=== PATIENT | male | born 2000 | race Caucasian/White ===

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

== ENCOUNTER 2019-04-07 12:40 | Inpatient (IN) ==
--- OUTSIDE RECORDS SUMMARY | 2019-04-07 12:42 | External Medical Summary | Continuity of Care Document ---
:2000 Author Name Ben Walden, Provider Address Unavailable Unavailable , Care Team Providers Name Role Phone Unavailable Unavailable Unavailable Bhargav HOWARD, Sigrid Unavailable [email or web address] Lucas Walden, Sarah Khan Unavailable [email or web address] HAYES Walden, S Unavailable Unavailable Unavailable Unavailable Unavailable Problems Asthma, mild (493.90) (J45.909) Shortness of breath (786.05) (R06.02) Pleurisy (511.0) (R09.1) Nausea (787.02) (R11.0) Abdominal pain, unspecified abdominal location (789.00) (R10 .9) BMI 26.0-26.9,adult (V85.22) (Z68.26) Back pain (724.5) (M54.9) Ankle sprain (845.00) (S93.409A) Depression with anxiety (300.4) (F41.8) Deviated nasal septum (470) (J34.2) Allergies and Adverse Reactions Penicillins (Allergy) Reaction: Hives Medications Bentyl 10 MG CAPS; TAKE 1 CAPSULE EVERY 6 HOURS NEEDED. Iram Start: 15-Nov-2017 Refills: 0 MiraLax Oral Powder; MIX 1 CAPFUL (17GM) IN 8 OUNCES OF WATER, JUICE, OR TEA AND DRINK DAILYIram Almanza Start: 15-Nov-2017 Refills: 0 Ondansetron 8 MG Oral Tablet Disintegrat ing; dissolve 1 tablet ON TONGUE every 6 to 8 hours for nausea LEE Durant Start: 15-Apr-2018 Quantity: 30 Refills: 4 FLUoxetine HCl - 20 MG Oral Capsule; TAKE 1 CAPSULE BY MOUTH DAILY Iram Zavala Start: 15-Apr-2018 Quantity: 30 Refills: 6 Procedures Procedures not documented Immunizations Hepatitis B On: 2000 IPV On: 1998 HIB On: 1998 DTaP On: 1998 IPV On: 1998 HIB On: 1998 DTaP On: 1998 DTaP On: 1998 Hepatitis B On: 14-Feb-1999 Varicella On: 16-May-1999 MMR On: 16-May-1999 Hepatitis B On: 15-Jun-1999 IPV On: 10-Aug-1999 HIB On: 10-Aug-1999 DTaP On: 10-Aug-1999 Pneumo (Prevnar) On: 14-Nov-1999 Pneumo (Prevnar) On: 24-Jan-2000 IPV On: 28-Apr-2003 DTaP On: 28-Apr-2003 MMR On: 28-Apr-2003 Varicella On: 09-Apr-2007 Tdap (Adacel) On: 06-Dec-2010 11:23 Lot #: [id number], [employer] Meningo (Menactra) On: 06-Dec-2010 11:22 Lot #: [id number], [employer] Menactra Intramuscular Injectable On: 15-Dec-2015 15:23 Lot #: [id number], [employer] Vaqta 25 UNIT/0.5ML Intramuscular Suspension On: 09-Apr-2017 14:28 Lot #: [id number], [employer] Trumenba Intramuscular Suspension Prefilled Syringe On: 14:29 Lot #: [id number], PFIZER [place]. Gardasil 9 Intramuscular Suspension On: 09-Apr-2017 14:29 Lot #: [id number], [employer] Family History Unknown Family Member Family history of Diabetes Mellitus (V18.0) Status: Active Comments: Family History Family history of Heart Disease (V17.49) Status: Active Comments: Family History Family history of Hypertension (V17.49) Status: Active Comments: Family History Family history of Hirschsprung's disease Status: Active Comments: Family History (751.3) (Q43.1) Mother Family history of hyperthyroidism (V18.19) (Z83.49) Status: Active uncle Family history of irritable bowel syndrome (V18.59) (Z83.79) Status: Active Social History - Smoking Status Never smoker Plan of Treatment Planned Observations Planned Goals not documented Results No Known Results Results not documented Encounters Appointment; Ken Marino M.D. 12-Feb-2018 13:30 Encounter Diagnosis: Problem not documented Appointment; Ken Marino M.D. 24-Dec-2017 15:00 Encounter Diagnosis: Problem not documented Appointment; Pulmonary, Funct Testing 21-Nov-2017 10:00 Encounter Diagnosis: Problem not documented Appointment; Ken Marino M.D. 15-Nov-2017 14:00 Encounter Diagnosis: Problem not documented Appointment; Roseline Flores M.D. 17-Oct-2017 9:00 Encounter Diagnosis: Problem not documented Appointment; Ped , Nursing Station 11-Oct-2017 15:45 Encounter Diagnosis: Problem not documented Appointment; Sigrid Durant PA-C 11-Sep-2017 11:10 Encounter Diagnosis: Problem not documented Appointment; Liilan Awan M.D. 29-Jun-2017 12:30 Encounter Diagnosis: Problem not documented Appointment; Ped , Nursing Station 20-Jun-2017 10:00 Encounter Diagnosis: Problem not documented Appointment; Hazel Man PA-C 14-Jun-2017 15:30 Encounter Diagnosis: Problem not documented Appointment; Sarah Zavala M.D. 20-Apr-2017 15:30 Encounter Diagnosis: Problem not documented Appointment; Radha Webb PA-C 09-Apr-2017 14:00 Encounter Diagnosis: Problem not documented
[2019-04-07 13:15] LABS: Appearance Urine Clear (Clear); Bilirubin Urine Negative (Negative); Blood Urine Negative (Negative); Color Urine Yellow; Glucose Urine UA Negative (Negative); Ketones Urine Negative (Negative); Leukocyte Esterase Urine Negative (Negative); Nitrite Urine Negative (Negative); Protein Urine Negative (Negative); Specific Gravity Urine 1.019 (1.000-1.030); Urobilinogen Urine Negative (Negative); pH Urine 6.5 (4.5-7.5)
--- NOTE | 2019-04-07 13:22 | Emergency Department Note ---
Entered by Rashid Alvarado acting as a scribe for Ajit Greenfield DO History of Present Illness General Chief complaint: Mental Health Evaluation Stated complaint: SUICIDAL THOUGHTS Source: patient History of Present Illness Onset (ago): hour(s) (earlier this morning ) Location: head Pain Consistency: + other (episode) Maximum Pain Intensity: 0 Quality: + other (suicidal ideation ) Associated symptoms: + other (+depressed) The patient is a 18 year old male, with no significant past medical history, who presents to the Emergency Room with complaints of an episode of suicidal ideation earlier this morning. The patient states he has been depressed for "quite a while". The patient states there has been a lot going on in his life, and he states that it seems like it is all hitting him at once. The patient states that this morning, he felt his worst and wanted to kill himself. The patient states he does not see a therapist or counselor, and he denies being on medication for anxiety or depression. The patient states he has never tried to hurt himself in the past, but he notes he has had thoughts of hurting himself a few times a week over the past 6 months. The patient states school as been good at [employer]. 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 The patient states he has not been in a relationship since July. The patient also notes he does not use drugs and alcohol anymore. Home Medications Home Medications Medication Instructions Recorded Confirmed Type ibuprofen 800 mg PO Q8H PRN 09/05/18 04/07/19 History albuterol sulfate [Ventolin HFA] 0 puff INHALATION UD PRN 04/07/19 04/07/19 History Allergies Allergy/AdvReac Type Severity Reaction Status Date / Time clavulanic acid Allergy Severe HIVES AND Verified 09/05/18 19:57 VOMITING Penicillins Allergy Severe HIVES AND Verified 09/05/18 19:57 VOMITING amoxicillin Allergy Intermediate HIVES Verified 09/05/18 19:57 doxycycline AdvReac Severe Vomiting Verified 09/05/18 19:57 lactose AdvReac Gastrointestinal Verified 09/05/18 19:57 Upset BETALACTAMASEIN Allergy Severe HIVES AND Uncoded 09/05/18 19:57 VOMITING Past Med/Surg History Medical History No significant past medical history Closed head injury (Resolved) Abdominal lymphadenopathy Family history non-contributory No significant past medical history Surgical History No significant past surgical history Family History Other Family history non-contributory Social History Preferred Language: Singaporean current occupational status: student Feels Safe at Home: Yes Smoking Status: Former smoker Review of Systems See HPI for pertinent positives & negatives. and A total of 10 systems reviewed and were otherwise negative Physical Exam Vital Signs Vital Signs - 24 hr 04/07/19 12:47 Temperature 36.8 C Temperature Source Oral Sepsis Recent Fever Within 48 Hours No Sepsis New/Unexplained Change in Mental Status No Sepsis Action Taken by Nursing No Action Required Pulse Rate 81 Respiratory Rate 18 Respiratory Effort / Characteristics Non-Labored Respiratory Depth Normal Blood Pressure 149/89 H Blood Pressure Mean 109 Blood Pressure Position Sitting Pulse Oximetry 100 Oxygen Delivery Method Room Air GENERAL: Patient is awake alert in no acute distress patient is resting comfortably and showing no signs of anxiety EYES: The conjunctivae are clear. The pupils are round and reactive. EARS, NOSE, MOUTH AND THROAT: The nose is without any evidence of any deformity. Mucous membranes are moist tongue is midline NECK: The neck is nontender and supple. RESPIRATORY: Normal respiratory effort is noted there is no evidence of wheezing rhonchi or rales CARDIOVASCULAR: Regular rate and rhythm noted there no murmurs rubs or gallops normal S1 normal S2 GASTROINTESTINAL: The abdomen is soft. Bowel sounds are present in all quadrants. Abdomen is nontender MUSCULOSKELETAL/EXTREMITIES: There is no evidence of gross deformity full range of motion is noted in the hips and shoulders SKIN: There is no obvious evidence of any rash. There are no petechiae, pallor or cyanosis noted. NEUROLOGIC: Patient is awake alert and oriented x3 strength is symmetric patellar reflexes are 2+ bilaterally PSYCH: The patient is awake and alert. He makes good eye contact. Affect is flat. Currently the patient is denying any suicidal homicidal ideation. Course 1257: Past medical records reviewed. The patient was evaluated in room A6. A complete history and physical exam was performed. 1758: The patient will be transferred to [facility] for further evaluation. Medical Decision Making Differential Diagnosis Differential diagnosis: Etiologies such as mood disorder, infection, hypoglycemia, electrolyte abnormalities, cardiac sources, intracerebral event, toxicologic, neurologic, as well as others were entertained. Medical Records Attestation: I reviewed the patient's medical records. Home Medications Current Medication List: was personally reviewed by me Laboratory Data Attestation: I reviewed the patient's lab results. Result diagrams: 04/07/19 13:26 04/07/19 13:26 Lab Results 04/07/19 04/07/19 04/07/19 Range/Units 12:55 12:55 13:26 WBC 8.45 (4.8-10.8) K/uL RBC 5.24 (4.7-6.1) M/uL Hgb 15.2 (14.0-18.0) g/dL Hct 46.1 (42-52) % MCV 88.0 (80-100) fL MCH 29.0 (25-34) pg MCHC 33.0 (32-36) g/dL RDW Std Deviation 41.1 (36.4-46.3) fL RDW Coeff of Jimmy 12.9 (11.5-14.5) % Plt Count 262 (130-400) K/uL MPV 11.2 H (7.4-10.4) fL Immature Gran % (Auto) 0.1 % Neut % (Auto) 70.0 % Lymph % (Auto) 23.0 % [place] % (Auto) 5.9 % Eos % (Auto) 0.6 % Baso % (Auto) 0.4 % Immature Gran # (Auto) 0.01 (0.00-0.02) K/uL Neut # (Auto) 5.92 (1.4-6.5) K/uL Lymph # (Auto) 1.94 (1.2-3.4) K/uL [place] # (Auto) 0.50 (0.11-0.59) K/uL Eos # (Auto) 0.05 (0-0.5) K/uL Baso # (Auto) 0.03 (0-0.2) K/uL Sodium (136-145) mmol/L Potassium (3.5-5.1) mmol/L Chloride (98-107) mmol/L Carbon Dioxide (21-32) mmol/L Anion Gap (3-11) BUN (7-18) mg/dl Creatinine (0.6-1.4) mg/dl Est Cr Clr Drug Dosing ml/min Est GFR ( Amer) Est GFR (Non-Af Amer) BUN/Creatinine Ratio (10-20) Glucose (70-99) mg/dl Calcium (8.5-10.1) mg/dl Total Bilirubin (0.2-1) mg/dl AST (15-37) U/L ALT (12-78) U/L Alkaline Phosphatase (45-117) U/L Total Protein (6.4-8.2) gm/dl Albumin (3.4-5.0) gm/dl Globulin (2.5-4.0) gm/dl Albumin/Globulin Ratio (0.9-2) TSH (0.300-4.500) uIu/ml Urine Color Yellow Urine Appearance Clear (Clear) Urine pH 6.5 (4.5-7.5) Ur Specific [place] 1.019 (1.000-1.030) Urine Protein Negative (Negative) Urine Glucose (UA) Negative (Negative) Urine Ketones Negative (Negative) Urine Blood Negative (Negative) Urine Nitrite Negative (Negative) Urine Bilirubin Negative (Negative) Urine Urobilinogen Negative (Negative) Ur Leukocyte Esterase Negative (Negative) Salicylates (2.8-20) mg/dl Urine Opiates Screen Neg (Neg) Ur Methadone, Qual Neg (Neg) Acetaminophen (10-30) ug/ml Urine Barbiturates Neg (Neg) Ur Phencyclidine (PCP) Neg (Neg) U Amphetamin/Meth Scrn Neg (Neg) MDMA (Ecstasy) Screen Neg (Neg) U Benzodiazepines Scrn Neg (Neg) Ur Cocaine Metabolite Neg (Neg) U Marijuana (THC) Screen Neg (Neg) Ethyl Alcohol mg/dL (0-3) mg/dl 04/07/19 04/07/19 04/07/19 Range/Units 13:26 13:26 13:26 WBC (4.8-10.8) K/uL RBC (4.7-6.1) M/uL Hgb (14.0-18.0) g/dL Hct (42-52) % MCV (80-100) fL MCH (25-34) pg MCHC (32-36) g/dL RDW Std Deviation (36.4-46.3) fL RDW Coeff of Jimmy (11.5-14.5) % Plt Count (130-400) K/uL MPV (7.4-10.4) fL Immature Gran % (Auto) % Neut % (Auto) % Lymph % (Auto) % [place] % (Auto) % Eos % (Auto) % Baso % (Auto) % Immature Gran # (Auto) (0.00-0.02) K/uL Neut # (Auto) (1.4-6.5) K/uL Lymph # (Auto) (1.2-3.4) K/uL [place] # (Auto) (0.11-0.59) K/uL Eos # (Auto) (0-0.5) K/uL Baso # (Auto) (0-0.2) K/uL Sodium 138 (136-145) mmol/L Potassium 3.7 (3.5-5.1) mmol/L Chloride 107 (98-107) mmol/L Carbon Dioxide 26 (21-32) mmol/L Anion Gap 6.0 (3-11) BUN 19 H (7-18) mg/dl Creatinine 1.01 (0.6-1.4) mg/dl Est Cr Clr Drug Dosing 118.8 ml/min Est GFR ( Amer) 123.5 Est GFR (Non-Af Amer) 106.6 BUN/Creatinine Ratio 18.3 (10-20) Glucose 87 (70-99) mg/dl Calcium 9.2 (8.5-10.1) mg/dl Total Bilirubin 0.4 (0.2-1) mg/dl AST 19 (15-37) U/L ALT 20 (12-78) U/L Alkaline Phosphatase 110 (45-117) U/L Total Protein 8.1 (6.4-8.2) gm/dl Albumin 4.0 (3.4-5.0) gm/dl Globulin 4.1 H (2.5-4.0) gm/dl Albumin/Globulin Ratio 1.0 (0.9-2) TSH 1.370 (0.300-4.500) uIu/ml Urine Color Urine Appearance (Clear) Urine pH (4.5-7.5) Ur Specific [place] (1.000-1.030) Urine Protein (Negative) Urine Glucose (UA) (Negative) Urine Ketones (Negative) Urine Blood (Negative) Urine Nitrite (Negative) Urine Bilirubin (Negative) Urine Urobilinogen (Negative) Ur Leukocyte Esterase (Negative) Salicylates < 1.7 L (2.8-20) mg/dl Urine Opiates Screen (Neg) Ur Methadone, Qual (Neg) Acetaminophen < 2 L (10-30) ug/ml Urine Barbiturates (Neg) Ur Phencyclidine (PCP) (Neg) U Amphetamin/Meth Scrn (Neg) MDMA (Ecstasy) Screen (Neg) U Benzodiazepines Scrn (Neg) Ur Cocaine Metabolite (Neg) U Marijuana (THC) Screen (Neg) Ethyl Alcohol mg/dL < 3.0 (0-3) mg/dl Blood Pressure Blood Pressure Findings: Elevated blood pressure Blood Pressure Disposition: Referred to patients primary care provider MDM Narrative The patient is a 18-year-old male who presented to the emergency department for an evaluation of mental health problems. The patient had significant depression symptoms. The patient presented to the emergency department because he was unsu re if he was safe. Initially he was very vague with his complaints and did not have any specific suicidal plan. Once he was medically cleared he was evaluated by the mental health case making machine operator. He was then found to have very significant depression symptoms and was felt to be at high risk. The patient was agreeable to inpatient management. He was referred to [facility] and was accepted for further i npatient management. Impression & Plan Depression, Suicidal ideation Discharge Plan Visit Data Chief Complaint: Mental Health Evaluation Stated Complaint: SUICIDAL THOUGHTS ED Provider: Ajit Greenfield Discharge Problem: Depression, Suicidal ideation Patient Disposition: Transfer Behavioral Health Fac Forms Stand Alone Forms: [facility] Prescriptions Prescriptions: No Action ibuprofen 800 mg tablet 800 mg PO Q8H PRN (Reason: Pain) RF: 0 albuterol sulfate [Ventolin HFA] 90 mcg/actuation HFA aerosol inhaler inhalation UD PRN (Reason: Shortness Of Breath Or Wheezing) RF: 0 Referrals Referrals: Igor Jose [Primary Care Provider] - Discharge Problem: Depression Qualifiers: Depression Type: unspecified Qualified Code(s): F32.9 - Major depressive disor pancho, single episode, unspecified The scribe's documentation has been prepared under my direction and personally reviewed by me in its entirety. I confirm that the note above accurately refl ects all work, treatment, procedures, and medical decision making performed by me.
[2019-04-07 13:44] LABS: Amphetamines+Metham, Urine Neg (Neg); Barbiturates, Urine Neg (Neg); Benzodiazepine, Urine Neg (Neg); Cocaine, Urine Neg (Neg); MDMA (Ecstacy), Urine Neg (Neg); Methadone, Urine Neg (Neg); Opiate, Urine Neg (Neg); Phencyclidine, Urine Neg (Neg)
[2019-04-07 13:55] LABS: Basophils # (auto) 0.03 K/uL (0-0.2); Basophils % (auto) 0.4 %; Eosinophils # (auto) 0.05 K/uL (0-0.5); Eosinophils % (auto) 0.6 %; Hematocrit (blood only) 46.1 % (42-52); Hemoglobin 15.2 g/dL (14.0-18.0); Immature Granulocytes # (auto) 0.01 K/uL (0.00-0.02); Immature Granulocytes % (auto) 0.1 %; Lymphocytes # (auto) 1.94 K/uL (1.2-3.4); Mean Platelet Volume 11.2 fL (7.4-10.4); Monocytes % (auto) 5.9 %; Neutrophils # (auto) 5.92 K/uL (1.4-6.5); Platelet Count 262 K/uL (130-400); RDW Coefficient of Variation 12.9 % (11.5-14.5); RDW Standard Deviation 41.1 fL (36.4-46.3); Red Blood Count 5.24 M/uL (4.7-6.1); White Blood Count 8.45 K/uL (4.8-10.8)
[2019-04-07 14:16] LABS: BUN Creatinine Ratio 18.3 (10-20); Calcium 9.2 mg/dl (8.5-10.1); Creatinine Clr Calc Pharmacy 118.8 ml/min; Est GFR (African American) 123.5; Est GFR (Non-African American) 106.6; Potassium 3.7 mmol/L (3.5-5.1)
[2019-04-07 14:17] LABS: Acetaminophen < 2 ug/ml (10-30); Salicylate < 1.7 mg/dl (2.8-20)
[2019-04-07 14:26] LABS: Bilirubin,Total 0.4 mg/dl (0.2-1); Globulin 4.1 gm/dl (2.5-4.0); Thyroid Stimulating Hormone 1.37 uIu/ml (0.300-4.500); Total Protein 8.1 gm/dl (6.4-8.2)
[2019-04-07] MEDS ORDERED: IBUPROFEN 800 MG TAB PO PRN (17:14)
[2019-04-07] MEDS ORDERED: ALBUTEROL HFA 8 GM INHALER INH PRN (17:14)
[2019-04-07] MEDS ORDERED: ALUMINUM/MAGNESIUM SUSP 30 ML UDC PO PRN (17:15)
[2019-04-07] MEDS ORDERED: MAGNESIUM HYDROXIDE SUSP 30 ML UDC PO PRN (17:15)
[2019-04-07] MEDS ORDERED: SODIUM CHLORIDE 0.65% NA SOLN 45 ML (OCEAN) PRN (17:15)
[2019-04-07] MEDS ORDERED: ACETAMINOPHEN 325 MG TAB PO PRN (17:15)
[2019-04-07] MEDS ORDERED: BISMUTH SUBSALICYLATE PER ML OMNICELL CHARGE PO PRN (17:15)
--- NOTE | 2019-04-08 10:24 | History & Physical ---
Date of Service April 08, 2019 Impression / Recommendations Impression 18 y/o SWM with depression who presents with suicidal thought after a break up, and has been struggling with low mood for months, never had formal treatment before, and would like therapy, but is not interested in medications. Has multiple psychosocial stressors, difficult family situation, limited supports. Unwilling for family meeting at this time, but will continue to encourage. Is feeling better in 12 hours here and hoping for rapid discharge. For now, inpatient treatment is indicated due to risk of suicide if discharged prematurely. (1) Suicidal ideation: 04/08 - Continue suicide checks, participation in unit groups and therapy. - Safety plan to include plan to secure guns. He states they are locked in a safe and he doesn't have the rowley. Also states the family he lives with doesn't know he's been struggling with depression or that he's in the hospital. - Family meeting indicated if patient willing. Present on Admission?: Yes (2) Depression: 04/08 - Reviewed diagnosis and treatment recommendations, including medication and therapy. He is unwilling for medication at this time, but is willing for therapy. Reviewed his fears of medication, and provided psychoeducation regarding antidepressants, what they do and do not do, common side effects, and encouraged him to consider if mood dose not improve with therapy alone. -Discussed behavioral strategies to improve mood, including attention to good sleep, exercise, nutrition. Encourage patient to consider being more open with his supports regarding his struggles. Depression Type: major depressive disorder Major depression recurrence: single episode Active/Remission status: currently active Major depression episode severity: severe Psychotic features: without psychotic features Qualified Code(s): F32.2 - Major depressive disorder, single episode, severe without psychotic features Present on Admission?: Yes (3) Gluten intolerance: 04/08 -patient reports a history of gluten intolerance, unclear if he has had a GI workup or formal medical diagnosis. We will request records from his PCP, Dr. Jose, at [facility]. -Patient reports specific dietary requirements, but does not know what they are; cardiopulmonary supervisor consulted for assistance. Gluten free diet for now. Present on Admission?: Yes Inventory Assets Strengths: Willing for treatment, has housing Needs: Treatment of depression, and outpatient treatment Risk Factors Assessment Male: Yes : Yes Do You Have Access To A Gun?: Yes Health Problems: Yes Mental Health Diagnoses: Yes Substance Use Disorders: No Previous Attempt: No Family History of Suicide: No Previous Psychiatric Hospitalization: No Hopelessness: Yes Smoker: No Protective Factors Assessment : No Responsible for Young Children: No Employed: No Stable Relationships: No Supportive Family: No Good Rapport with Provider: No Psychiatric History Identifying Data BENJIE VALLE is a 18-year-old M who currently lives in [place] with a friend and their family, has a history of depression that has never been treated, and was admitted on 04/07/19 17:15 on a 201 voluntary commitment for depression and suicidal ideation. Chief Complaint "GOt really down, the lowest I've ever been, sudha scary honestly". History of Present Illness Patient presented to the ER 04/07/2019 reporting suicidal thoughts and a desire to , with a plan to crash his car while driving. He stated depression had been worsening for "quite a while," and that he felt overwhelmed and unable to cope. He has never received any treatment, although reports depression has been ongoing for years. Exacerbated by his girlfriend breaking up with him, strained relationships with his family and roommates, financial problems, lack of support, and unemployment. His blood pressure was elevated 149/89 in the ER, but has since normalized. Laboratory studies were normal, and TSH was in the normal range. On my assessment today, he endorses depressed mood, frequent crying spells, helplessness, hopelessness, low self-esteem and negative thoughts about himself, guilt, inability to function on a daily basis, low motivation, and decreased appetite (gained weight intentionally, works out). Sleep is impaired, which he attributes to not having his own room (shares w/ friend) and sleeping on a camping cot (his bed was disposed of due to bed bugs). Gets 6-7 hours/night. He has been isolating at home more, not going out with friends. Has lost his friend group after an argument with two friends last year. He notes mood has progressively worsened over the past 2-3 months, and states this the worst he has ever felt. Yesterday mood worsened acutely after a girl he had gone on some dates with told him she didn't want to continue seeing him, and "that pushed me over the edge." He reports multiple other stressors as well, including strained family relationships, noting he moved out of his mother's home at age 13 to live with family friends (still living with the same family). Only talks to his mom a couple times a month, and sees father once a month. Also stressed about finances (not working and no income, quit last job and has applied for others but not gotten one yet) and school (needs to get an home maker for the summer and then a job, but doesn't know exactly what he wants to do when he's done with school). He says he should "probably" attempt to address them while here, as recognizing they're negatively impacting his mood. He is doing well in school, "I do decent, but could try harder in a few classes." Denies significant anxiety, panic, OCD, h/o octavia, psychosis, or anger outbursts/aggression. Notes he hasn't talked about his depression with friends or family, and doesn't know if he wants to involve them. Past Psychiatric History Previous Psych History: Talked to his guidance counselor in . Outpatient Services: None Previous Psych Admissions: None Do You Have Access To A Gun?: Yes History of Previous Suicide Attempt: No Past Medication Trials: fluoxetine - prescribed by PCP, doesn't know how it affected him Allergies Allergy/AdvReac Type Severity Reaction Status Date / Time clavulanic acid Allergy Severe HIVES AND Verified 09/05/18 19:57 VOMITING Penicillins Allergy Severe HIVES AND Verified 09/05/18 19:57 VOMITING amoxicillin Allergy Intermediate HIVES Verified 09/05/18 19:57 doxycycline AdvReac Severe Vomiting Verified 09/05/18 19:57 lactose AdvReac Gastrointestinal Verified 09/05/18 19:57 Upset BETALACTAMASEIN Allergy Severe HIVES AND Uncoded 09/05/18 19:57 VOMITING Home Medications Home Medications Medication Instructions Recorded Confirmed Type ibuprofen 800 mg PO Q8H PRN 09/05/18 04/07/19 History albuterol sulfate [Ventolin HFA] 0 puff INHALATION UD PRN 04/07/19 04/07/19 History Family History Family History of: None Alcohol History Hx of Alcohol Use Over the Past 12 Months: No AUDIT Total Score: 0 Smoking Use Have You Smoked or Used Tobacco Products in the Last 30 Days: No Smoking Status: Never smoker Substance History Hx of Prescription Med Misuse Over the Past 12 Months: No Hx of Over the Counter Med Misuse Over the Past 12 Months: No Hx of Inhalent Misuse Over the Past 12 Months: No Hx of Organic Substance Use Over the Past 12 Months: Yes (smoked cannabis x 1.5 year, stopped 05/2018 after a bad experience) Hx of Illegal Substances/Street Drug Use Over Past 12 Months: No Problems as a Result of Past Substance Use: None Identified Personal History Living Arrangements: Home Living Arrangements Comments: Lives with longtime friend, his friend's mother, stepfather, and their niece and nephew. Mother lives in [place], father in [place]. Has 4 siblings and one nephew. Childhood: Parents when he was a young child, and he went to live with his mother until age 13, and saw father every other weekend. Highest Grade Completed: High School Graduate Highest Grade Completed Comment: Currently attending [employer] Employment Status: Student Marital Status: Single Number Of Children: 0 Beliefs That Will Affect Care: None Current Legal Problems: No Hx Traumatic Life Events: No Psychological Trauma History Comment: Denies h/o abuse. Traumatic experience when 14 y/o sister had a baby (father was 19 y/o) - found out the day before she had the baby Patient History Medical History No significant past medical history Closed head injury (Resolved) Abdominal lymphadenopathy Family history non-contributory No significant past medical history Surgical History No significant past surgical history Family History Other Family history non-contributory Social History Preferred Language: Turkmen Communication Ability: Effective Animal Pathology Teacher Required: No Beliefs That Will Affect Care: None current occupational status: student Feels Safe at Home: Yes Smoking Status: Never smoker Review of Systems Review of Systems: All systems reviewed & are unremarkable except as noted in HPI & below Physical Exam Psychiatric: Orientation: alert, oriented x 3 and cooperative Apperance: appropriately dressed, appropriately groomed and appeared stated age Eye Contact: good eye contact Motor Behavior: steady gait and station and no abnormal motor movements Speech: normal rate/rhythm/volume of speech Affect: + depressed affect, + anxious affect and mood congruent with affect Mood: + depressed mood Thought Process: goal directed thought process Thought Content: reality based without delusions Suicidal Thoughts: denies suicidal thoughts Homicidal Thoughts: denies homicidal thoughts Hallucinations: no auditory hallucinations and no visual hallucinations Cognition: recent memory grossly intact, attention grossly intact and language grossly intact Insight: + fair insight Judgement: + fair judgement Vital Signs (Past 24 Hours): Last Vital Signs Temp 36.6 C 04/08/19 06:58 Pulse 69 04/08/19 06:59 Resp 18 04/08/19 06:58 BP 107/72 04/08/19 06:59 Pulse Ox 98 04/07/19 19:50 Exam Statement: A physical exam was performed in the ER prior to admission to the unit by Dr. Ajit Greenfield. I accept that physical as correct/medical clearance for the inpatient physical exam. Results & Data Laboratory Results Laboratory Results - last 24 hr 04/07/19 04/07/19 04/07/19 12:55 12:55 13:26 WBC 8.45 RBC 5.24 Hgb 15.2 Hct 46.1 MCV 88.0 MCH 29.0 MCHC 33.0 RDW Std Deviation 41.1 RDW Coeff of Jimmy 12.9 Plt Count 262 MPV 11.2 H Immature Gran % (Auto) 0.1 Neut % (Auto) 70.0 Lymph % (Auto) 23.0 Wilkin % (Auto) 5.9 Eos % (Auto) 0.6 Baso % (Auto) 0.4 Immature Gran # (Auto) 0.01 Neut # (Auto) 5.92 Lymph # (Auto) 1.94 Wilkin # (Auto) 0.50 Eos # (Auto) 0.05 Baso # (Auto) 0.03 Sodium Potassium Chloride Carbon Dioxide Anion Gap BUN Creatinine Est Cr Clr Drug Dosing Est GFR ( Amer) Est GFR (Non-Af Amer) BUN/Creatinine Ratio Glucose Calcium Total Bilirubin AST ALT Alkaline Phosphatase Total Protein Albumin Globulin Albumin/Globulin Ratio TSH Urine Color Yellow Urine Appearance Clear Urine pH 6.5 Ur Specific [place] 1.019 Urine Protein Negative Urine Glucose (UA) Negative Urine Ketones Negative Urine Blood Negative Urine Nitrite Negative Urine Bilirubin Negative Urine Urobilinogen Negative Ur Leukocyte Esterase Negative Salicylates Urine Opiates Screen Neg Ur Methadone, Qual Neg Acetaminophen Urine Barbiturates Neg Ur Phencyclidine (PCP) Neg U Amphetamin/Meth Scrn Neg MDMA (Ecstasy) Screen Neg U Benzodiazepines Scrn Neg Ur Cocaine Metabolite Neg U Marijuana (THC) Screen Neg Ethyl Alcohol mg/dL 04/07/19 04/07/19 04/07/19 13:26 13:26 13:26 WBC RBC Hgb Hct MCV MCH MCHC RDW Std Deviation RDW Coeff of Jimmy Plt Count MPV Immature Gran % (Auto) Neut % (Auto) Lymph % (Auto) Wilkin % (Auto) Eos % (Auto) Baso % (Auto) Immature Gran # (Auto) Neut # (Auto) Lymph # (Auto) Wilkin # (Auto) Eos # (Auto) Baso # (Auto) Sodium 138 Potassium 3.7 Chloride 107 Carbon Dioxide 26 Anion Gap 6.0 BUN 19 H Creatinine 1.01 Est Cr Clr Drug Dosing 118.8 Est GFR ( Amer) 123.5 Est GFR (Non-Af Amer) 106.6 BUN/Creatinine Ratio 18.3 Glucose 87 Calcium 9.2 Total Bilirubin 0.4 AST 19 ALT 20 Alkaline Phosphatase 110 Total Protein 8.1 Albumin 4.0 Globulin 4.1 H Albumin/Globulin Ratio 1.0 TSH 1.370 Urine Color Urine Appearance Urine pH Ur Specific [place] Urine Protein Urine Glucose (UA) Urine Ketones Urine Blood Urine Nitrite Urine Bilirubin Urine Urobilinogen Ur Leukocyte Esterase Salicylates < 1.7 L Urine Opiates Screen Ur Methadone, Qual Acetaminophen < 2 L Urine Barbiturates Ur Phencyclidine (PCP) U Amphetamin/Meth Scrn MDMA (Ecstasy) Screen U Benzodiazepines Scrn Ur Cocaine Metabolite U Marijuana (THC) Screen Ethyl Alcohol mg/dL < 3.0 Current Inpatient Medications Current Inpatient Medications: Current Inpatient Medications Acetaminophen (Tylenol) 650 mg PO Q4H PRN PRN Reason: Headache or Minor Fever Stop: 05/07/19 17:14 Al Hydrox/Mg Hydrox/Simethicone (Maalox) 30 ml PO Q4H PRN PRN Reason: GI Upset Stop: 05/07/19 17:14 Albuterol (Ventolin Hfa) 2 puffs INH Q4H PRN PRN Reason: Shortness Of Breath Or Wheezin Stop: 05/07/19 17:13 Bismuth Subsalicylate (Kaopectate) 15 ml PO PRN PRN PRN Reason: Loose Stool Stop: 05/07/19 17:14 Hydroxyzine HCl (Vistaril) 25 mg PO Q4H PRN PRN Reason: Anxiety Stop: 05/07/19 17:14 Hydroxyzine HCl (Vistaril) 50 mg PO HSZ PRN PRN Reason: Insomnia Stop: 05/07/19 17:14 Ibuprofen (Motrin) 800 mg PO Q8H PRN PRN Reason: Pain Stop: 05/07/19 17:13 Magnesium Hydroxide (Milk Of Magnesia) 30 ml PO DAILY PRN PRN Reason: Constipation Stop: 05/07/19 17:14 Sodium Chloride ([place] Nasal) 1 - 2 sprays NA PRN PRN PRN Reason: Nasal Dryness/Congestion Stop: 05/07/19 17:14 CPT Code CPT Code Initial Hospital Care: [id number]
--- NOTE | 2019-04-09 11:06 | Psychiatric Progress Note ---
Date of Service April 09, 2019 Impression / Recommendations Impression 18 y/o SWM with depression who presents with suicidal thought after a break up, and has been struggling with low mood for months, never had formal treatment before, and would like therapy, but is not interested in medications. Has multiple psychosocial stressors, difficult family situation, limited supports. Unwilling for family meeting at this time, but will continue to encourage. He continues to be focused on discharge, but admits that "taking a break" has been helpful in improving his mood and overall outlook on stressors. Family meeting scheduled for this afternoon with mother, as well as friend and friend's mother (whom he has been living with). For now, inpatient treatment is indicated due to risk of suicide if discharged prematurely. Will continue inpatient treatment to ensure stability of mood and continue observations and therapeutic interventions. He will likely be discharged for an outpatient therapy appointment tomorrow afternoon if condition remains stable. (1) Suicidal ideation: 04/08 - Continue suicide checks, participation in unit groups and therapy. - Safety plan to include plan to secure guns. He states they are locked in a safe and he doesn't have the rowley. Also states the family he lives with doesn't know he's been struggling with depression or that he's in the hospital. - Family meeting indicated if patient willing. 04/09 - Pt denying SI today, admitting to increased hopefulness (2) Depression: 04/08 - Reviewed diagnosis and treatment recommendations, including medication and therapy. He is unwilling for medication at this time, but is willing for therapy. Reviewed his fears of medication, and provided psychoeducation regarding antidepressants, what they do and do not do, common side effects, and encouraged him to consider if mood dose not improve with therapy alone. -Discussed behavioral strategies to improve mood, including attention to good sleep, exercise, nutrition. Encourage patient to consider being more open with his supports regarding his struggles. 04/09 - Pt reporting improvement in mood. Ensured patient's understanding of medication options if desired, as discussed yesterday - Pt continues to decline antidepressant medications - Pt has been scheduled with an outpatient therapist and is excited to follow-up with this service - He reports poor sleep in this setting, was reminded about prn medications available - Family meeting scheduled for this afternoon with mother, friend, and friend's mother (where he has been residing) - Anticipate discharge tomorrow morning, to allow for continued observation of mood but also ensure he gets to his therapy appointment (3) Gluten intolerance: 04/08 -patient reports a history of gluten intolerance, unclear if he has had a GI workup or formal medical diagnosis. We will request records from his PCP, Dr. Jose, at [facility]. -Patient reports specific dietary requirements, but does not know what they are; surface grinder tender consulted for assistance. Gluten free diet for now. 04/09 - Pt met with dietitian yesterday; focused on improving variety of meal choices. Pt provided with printed information on diagnoses and dietary information Inventory Assets Strengths: Willing for treatment, has housing Needs: Treatment of depression, and outpatient treatment Risk Factors Assessment Male: Yes : Yes Do You Have Access To A Gun?: Yes Health Problems: Yes Mental Health Diagnoses: Yes Substance Use Disorders: No Previous Attempt: No Family History of Suicide: No Previous Psychiatric Hospitalization: No Hopelessness: Yes Smoker: No Protective Factors Assessment : No Responsible for Young Children: No Employed: No Stable Relationships: No Supportive Family: No Good Rapport with Provider: No Interval History Identifying Information BENJIE VALLE is a 18-year-old M who currently lives in [place] with a friend and their family, has a history of depression that has never been treated, and was admitted on 04/07/19 17:15 on a 201 voluntary commitment for depression and suicidal ideation. Chief Complaint "I'm feeling better. Improving from the first night for sure." Review of Systems Notes Constitutional: reports difficulty sleeping, relating it to unfamiliar setting Cardiovascular: denied Respiratory: denied Gastrointestinal: denied Neurological: denied Psychiatric: denies symptoms other than stated above Total of at least 10 systems reviewed, pertinent positives as above and in HPI. Sleep Information Total Hours of Sleep: 6.75 Sleep Comments: pt on q-15 minute checks Meal Information Percent Meal Consumed - Breakfast: 100 Percent Meal Consumed - Lunch: 100 Percent Meal Consumed - Dinner: 100 Subjective Subjective Patient was seen & assessed and interval progress reviewed with treatment team. Staff reports the patient has a meeting scheduled with his mother and the mother of the home he is living in at 14:30 today. It is possible the his friend will join as well. Pt rated his mood an 8/10 and "feeling good" last evening. Pt was seen today to assess progress since admission. Pt states he is feeling "better", reporting improvement in mood from last evening. Pt is cooperative with sharing some of his history, and briefly recounting events that led to his admission. Pt states, "I think it's good that I came, it's nice to have a bit of a break from things, but I think I need to get home too." Pt denies any specific concerns about his upcoming family meeting. He inquires if it would be possible to go home this evening, "if the meeting goes well, I mean." Pt was informed that family meetings can at times be challenging and that it is recommended he remain in treatment overnight to ensure stability of mood and allow for additional time in groups. We discussed likelihood of discharge tomorrow, as he is aware he has an afternoon therapy appointment. Pt states he is excited for this visit, "I've been trying to get a therapist for a long time." He admits he is a bit nervous as, "I like being by myself, it's weird to talk to people. But, I really do think it will help." Pt was reminded about antidepressant medications as an option should he feel they would be beneficial. He continues to report desire to begin with therapy as "I really don't like the idea of medications, any medications." Pt denies SI today. He denies other acute needs or concerns. Physical Exam Psychiatric Orientation: alert, oriented x 3 and cooperative (mildly reserved, but pleasant) Apperance: appropriately dressed (casually, in sweatpants and t-shirt), appropriately groomed and appeared stated age Eye Contact: good eye contact Motor Behavior: steady gait and station and no abnormal motor movements Speech: normal rate/rhythm/volume of speech Affect: + depressed affect (improving, appearing brighter today), + anxious affect (mildly) and mood congruent with affect Mood: + anxious mood ("I am getting stressed about things I have to do outside of here."); no depressed mood ("I'm feeling a lot better.") Thought Process: goal directed thought process, linear/logical thought process, clear/coherent thought process and thought association intact Thought Content: reality based without delusions; no hopelessness and no worthlessness Suicidal Thoughts: denies suicidal thoughts Homicidal Thoughts: denies homicidal thoughts Hallucinations: no auditory hallucinations and no visual hallucinations Cognition: remote memory grossly intact, attention grossly intact and language grossly intact Insight: + fair insight Judgement: + fair judgement Vital Signs (Past 24 Hours) Last Vital Signs Temp 36.5 C 04/09/19 06:58 Pulse 84 04/09/19 06:59 Resp 16 04/09/19 06:58 BP 110/66 04/09/19 06:59 Pulse Ox 98 04/07/19 19:50 Results & Data Current Inpatient Medications Current Inpatient Medications: Current Inpatient Medications Acetaminophen (Tylenol) 650 mg PO Q4H PRN PRN Reason: Headache or Minor Fever Stop: 05/07/19 17:14 Al Hydrox/Mg Hydrox/Simethicone (Maalox) 30 ml PO Q4H PRN PRN Reason: GI Upset Stop: 05/07/19 17:14 Albuterol (Ventolin Hfa) 2 puffs INH Q4H PRN PRN Reason: Shortness Of Breath Or Wheezin Stop: 05/07/19 17:13 Bismuth Subsalicylate (Kaopectate) 15 ml PO PRN PRN PRN Reason: Loose Stool Stop: 05/07/19 17:14 Hydroxyzine HCl (Vistaril) 25 mg PO Q4H PRN PRN Reason: Anxiety Stop: 05/07/19 17:14 Hydroxyzine HCl (Vistaril) 50 mg PO HSZ PRN PRN Reason: Insomnia Stop: 05/07/19 17:14 Ibuprofen (Motrin) 800 mg PO Q8H PRN PRN Reason: Pain Stop: 05/07/19 17:13 Magnesium Hydroxide (Milk Of Magnesia) 30 ml PO DAILY PRN PRN Reason: Constipation Stop: 05/07/19 17:14 Sodium Chloride ([place] Nasal) 1 - 2 sprays NA PRN PRN PRN Reason: Nasal Dryness/Congestion Stop: 05/07/19 17:14 Mental Health & Subst Abuse Tx Psychiatrist Name of Psychiatrist: Declined. Therapist Name of Therapist: Emily Dc PsyD Therapist's Date of Therapist Appointment: 04/10/19 Time of Therapist Appointment: 1pm Therapy Appointment Comment: [address], [address], [place] [address] Lineworker Name of Lineworker: Denies Post Discharge Appointments Primary Care Physician Name Of Family Doctor: Dr. Vlad Jose MD; [facility] Time of Appointment with PCP: follow up as needed. Provider Appointment Comment: [id number], [place] [address] Contact Information Discharge Discharge [address]: [address] [place] [address], [place] [address] CPT Code CPT Code 01678 (1) Depression Active/Remission status: currently active Depression Type: major depressive disorder Major depression episode severity: severe Major depression recurrence: single episode Psychotic features: without psychotic features Qualified Code(s): F32.2 - Major depressive disorder, single episode, severe without psychotic features
--- NOTE | 2019-04-10 09:39 | Discharge Summary ---
Date of Service April 10, 2019 History of Present Illness Patient presented to the ER 04/07/2019 reporting suicidal thoughts and a desire to , with a plan to crash his car while driving. He stated depression had been worsening for "quite a while," and that he felt overwhelmed and unable to cope. He has never received any treatment, although reports depression has been ongoing for years. Exacerbated by his girlfriend breaking up with him, strained relationships with his family and roommates, financial problems, lack of support, and unemployment. His blood pressure was elevated 149/89 in the ER, but has since normalized. Laboratory studies were normal, and TSH was in the normal range. On my assessment today, he endorses depressed mood, frequent crying spells, helplessness, hopelessness, low self-esteem and negative thoughts about himself, guilt, inability to function on a daily basis, low motivation, and decreased appetite (gained weight intentionally, works out). Sleep is impaired, which he attributes to not having his own room (shares w/ friend) and sleeping on a camping cot (his bed was disposed of due to bed bugs). Gets 6-7 hours/night. He has been isolating at home more, not going out with friends. Has lost his friend group after an argument with two friends last year. He notes mood has progressively worsened over the past 2-3 months, and states this the worst he has ever felt. Yesterday mood worsened acutely after a girl he had gone on some dates with told him she didn't want to continue seeing him, and "that pushed me over the edge." He reports multiple other stressors as well, including strained family relationships, noting he moved out of his mother's home at age 13 to live with family friends (still living with the same family). Only talks to his mom a couple times a month, and sees father once a month. 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 He says he should "probably" attempt to address them while here, as recognizing they're negatively impacting his mood. He is doing well in school, "I do decent, but could try harder in a few classes." Denies significant anxiety, panic, OCD, h/o octavia, psychosis, or anger outbursts/aggression. Notes he hasn't talked about his depression with friends or family, and doesn't know if he wants to involve them. Physical Exam Psychiatric Orientation: alert and cooperative Apperance: appropriately dressed, appropriately groomed and appeared stated age Eye Contact: good eye contact Motor Behavior: steady gait and station and no abnormal motor movements Speech: normal rate/rhythm/volume of speech Affect: euthymic affect and mood congruent with affect "Pretty good." Thought Process: goal directed thought process and linear/logical thought process Thought Content: reality based without delusions Suicidal Thoughts: denies suicidal thoughts Homicidal Thoughts: denies homicidal thoughts Hallucinations: no auditory hallucinations Cognition: recent memory grossly intact, attention grossly intact and language grossly intact Estimated Intelligence: consistent with education level Insight: + fair insight Judgement: + fair judgement Vital Signs (Past 24 Hours) Last Vital Signs Temp 36.4 C L 04/10/19 06:00 Pulse 82 04/10/19 07:00 Resp 17 04/10/19 06:00 BP 124/80 04/10/19 07:00 Pulse Ox 98 04/07/19 19:50 Principal Diagnosis Major depressive disorder, single episode, severe without psychosis Psychiatric Data Patient was hospitalized for 3 days. He was diagnosed with major depression, and treatment recommendations were reviewed, including medications and psychotherapy. He declined a trial of an antidepressant, but was provided with information about medication and advised to revisit if mood does not improve with therapy alone. He attended and participated in groups and therapy, reported improved mood rapidly upon admission, was able to process his stresso rs, and was referred for outpatient therapy. He had a family meeting with his mother, his friend Drew and Drew's mother whom he lives with on 04/09/2019. There were supportive, and reported frustration that he had tried to get outpatient treatment in the past but had been unable to go. They noted his reluctance to communicate and acknowledge difficulties as a major problem, and he stated he does not want to burden others so hides how he is feeling. He continued to refuse medication, although his mother reported that he did well on fluoxetine in the past. His discharge plan was reviewed, as well as his safety plan. The family denied any safety concerns, and confirmed that guns are locked in a safe and the patient does not have access to them. He consistently denied suicidal thoughts on the unit, was eating and sleeping well, and tending to ADLs independently. Day of Discharge Assessment Staff report the patient continues to be cooperative with treatment, is denying suicidal thoughts, and planning for discharge this morning in order to attend his first therapy appointment this afternoon. On my assessment he reports mood is "pretty good," feels improved from admission, maintains that he does not want medication and wants to address depression via psychotherapy. He reports good support from his family, and denies any safety concerns with discharge. He is planning to return to school on Sunday, and is looking forward to being at home, sleeping in his own room, and seeing his dog. Transition of Care Transition Of Care Record: was reviewed with the patient Advance Directives Advance Directives Information Provided: Yes Advance Directives: No Mental Health Advance Directive: No Advance Directives on File: No Living Will: No Power of Post Secondary Professional: No Advance Directives Reason:: Declines as Mental Health Visit. Risk Factors Assessment Risk factors were mitigated by admission to the inpatient unit, providing education about his diagnosis and treatment options, discussion of antidepressants which he declined, referral for outpatient therapy, family meeting involving his mother, friend and friend's mother whom he lives with, participation in unit groups and therapy, working on healthy coping skills and his discharge safety plan. He is reporting improved mood, has consistently denied suicidal thoughts here, is engaged in treatment and stating willingness to follow up with outpatient therapy, and is tending to ADLs independently. His roommate confirmed that the guns are locked in a safe and the patient does not have access, and the family he lives with denies other acute safety concerns. He is requesting discharge, and is he is no longer at acute risk of harm to himself, can be managed as an outpatient at this time. He is not at increased risk for harm to others. Male: Yes : Yes Do You Have Access To A Gun?: No (Roommate confirmed that guns are locked in a safe and the patient does not have access.) Health Problems: Yes Mental Health Diagnoses: Yes Substance Use Disorders: No Previous Attempt: No Family History of Suicide: No Previous Psychiatric Hospitalization: No Hopelessness: Yes Smoker: No Protective Factors Assessment : No Responsible for Young Children: No Employed: No Stable Relationships: Yes Supportive Family: Yes Tobacco Cessation at Discharge Tobacco Cessation Medication Prescribed at Discharge: Not Applicable/Non-Smoker Total Time Total Time Spent: Greater Than 30 Minutes Total Time Includes: Examination of the patient, Discharge Planning and Medication Reconciliation Discharge Data Lab Results 04/07/19 04/07/19 04/07/19 12:55 12:55 13:26 WBC 8.45 RBC 5.24 Hgb 15.2 Hct 46.1 MCV 88.0 MCH 29.0 MCHC 33.0 RDW Std Deviation 41.1 RDW Coeff of Jimmy 12.9 Plt Count 262 MPV 11.2 H Immature Gran % (Auto) 0.1 Neut % (Auto) 70.0 Lymph % (Auto) 23.0 [place] % (Auto) 5.9 Eos % (Auto) 0.6 Baso % (Auto) 0.4 Immature Gran # (Auto) 0.01 Neut # (Auto) 5.92 Lymph # (Auto) 1.94 [place] # (Auto) 0.50 Eos # (Auto) 0.05 Baso # (Auto) 0.03 Sodium Potassium Chloride Carbon Dioxide Anion Gap BUN Creatinine Est Cr Clr Drug Dosing Est GFR ( Amer) Est GFR (Non-Af Amer) BUN/Creatinine Ratio Glucose Calcium Total Bilirubin AST ALT Alkaline Phosphatase Total Protein Albumin Globulin Albumin/Globulin Ratio TSH Urine Color Yellow Urine Appearance Clear Urine pH 6.5 Ur Specific [place] 1.019 Urine Protein Negative Urine Glucose (UA) Negative Urine Ketones Negative Urine Blood Negative Urine Nitrite Negative Urine Bilirubin Negative Urine Urobilinogen Negative Ur Leukocyte Esterase Negative Salicylates Urine Opiates Screen Neg Ur Methadone, Qual Neg Acetaminophen Urine Barbiturates Neg Ur Phencyclidine (PCP) Neg U Amphetamin/Meth Scrn Neg MDMA (Ecstasy) Screen Neg U Benzodiazepines Scrn Neg Ur Cocaine Metabolite Neg U Marijuana (THC) Screen Neg Ethyl Alcohol mg/dL 04/07/19 04/07/19 04/07/19 13:26 13:26 13:26 WBC RBC Hgb Hct MCV MCH MCHC RDW Std Deviation RDW Coeff of Jimmy Plt Count MPV Immature Gran % (Auto) Neut % (Auto) Lymph % (Auto) [place] % (Auto) Eos % (Auto) Baso % (Auto) Immature Gran # (Auto) Neut # (Auto) Lymph # (Auto) [place] # (Auto) Eos # (Auto) Baso # (Auto) Sodium 138 Potassium 3.7 Chloride 107 Carbon Dioxide 26 Anion Gap 6.0 BUN 19 H Creatinine 1.01 Est Cr Clr Drug Dosing 118.8 Est GFR ( Amer) 123.5 Est GFR (Non-Af Amer) 106.6 BUN/Creatinine Ratio 18.3 Glucose 87 Calcium 9.2 Total Bilirubin 0.4 AST 19 ALT 20 Alkaline Phosphatase 110 Total Protein 8.1 Albumin 4.0 Globulin 4.1 H Albumin/Globulin Ratio 1.0 TSH 1.370 Urine Color Urine Appearance Urine pH Ur Specific [place] Urine Protein Urine Glucose (UA) Urine Ketones Urine Blood Urine Nitrite Urine Bilirubin Urine Urobilinogen Ur Leukocyte Esterase Salicylates < 1.7 L Urine Opiates Screen Ur Methadone, Qual Acetaminophen < 2 L Urine Barbiturates Ur Phencyclidine (PCP) U Amphetamin/Meth Scrn MDMA (Ecstasy) Screen U Benzodiazepines Scrn Ur Cocaine Metabolite U Marijuana (THC) Screen Ethyl Alcohol mg/dL < 3.0 Hospital Course (1) Suicidal ideation: 04/08 - Continue suicide checks, participation in unit groups and therapy. - Safety plan to include plan to secure guns. He states they are locked in a safe and he doesn't have the rowley. Also states the family he lives with doesn't know he's been struggling with depression or that he's in the hospital. - Family meeting indicated if patient willing. 04/09 - Pt denying SI today, admitting to increased hopefulness (2) Depression: 04/08 - Reviewed diagnosis and treatment recommendations, including medication and therapy. He is unwilling for medication at this time, but is willing for therapy. Reviewed his fears of medication, and provided psychoeducation regarding antidepressants, what they do and do not do, common side effects, and encouraged him to consider if mood dose not improve with therapy alone. -Discussed behavioral strategies to improve mood, including attention to good sleep, exercise, nutrition. Encourage patient to consider being more open with his supports regarding his struggles. 04/09 - Pt reporting improvement in mood. Ensured patient's understanding of medication options if desired, as discussed yesterday - Pt continues to decline antidepressant medications - Pt has been scheduled with an outpatient therapist and is excited to follow-up with this service - He reports poor sleep in this setting, was reminded about prn medications available - Family meeting scheduled for this afternoon with mother, friend, and friend's mother (where he has been residing) - Anticipate discharge tomorrow morning, to allow for continued observation of mood but also ensure he gets to his therapy appointment (3) Gluten intolerance: 04/08 -patient reports a history of gluten intolerance, unclear if he has had a GI workup or formal medical diagnosis. We will request records from his PCP, Dr. Jose, at [facility]. 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 Gluten free diet for now. 04/09 - Pt met with dietitian yesterday; focused on improving variety of meal choices. Pt provided with printed information on diagnoses and dietary information Mental Health & Subst Abuse Tx Psychiatrist Name of Psychiatrist: Declined. Therapist Name of Therapist: Emily Dc PsyD Therapist's Date of Therapist Appointment: 04/10/19 Time of Therapist Appointment: 1pm Therapy Appointment Comment: [address], [address], [place] [address] Therapist Release of Information: Obtained, Reviewed and Signed Montessori Paraprofessional Name of Montessori Paraprofessional: Denies Post Discharge Appointments Primary Care Physician Name Of Family Doctor: Dr. Vlad Jose MD; [facility] Time of Appointment with PCP: follow up as needed. Provider Appointment Comment: [address], [place] [address] Primary Care Release of Information: Obtained, Reviewed and Signed Smoking Cessation Counseling Tobacco Cessation Medication Prescribed at Discharge: Not Applicable/Non-Smoker Contact Information Discharge Discharge Address: [address] [place] [id number] Discharge Plan Discharge Items Patient Disposition: Home - Self-Care Reason For Visit: DEPRESSION NOS Discharge Diagnosis: Major depressive disorder, single episode, severe without psychosis Activity: Per Instructions section Non-emergency contact: Therapist Call non-emergency contact if: your symptoms worsen Follow-up/Referrals: Igor Jose [Primary Care Provider] - Diet: Regular Addtl Attending Provider Instructions: SPECIAL CARE INSTRUCTIONS: 1. Follow through with your scheduled aftercare appointments. If unable to keep an appointment, please call to reschedule. 2. You are not on medication as you declined antidepressants. If mood does not improve sufficiently with therapy, you may want to consider medication. 3. Utilize new healthy coping skills, anger management skills, and stress management skills learned during your hospitalization. Journal feelings and process them with a support person. Identify stressors or situations that may result in relapse, deterioration or inappropriate behaviors and develop a plan to deal with those issues. 4. If your coping skills are ineffective and you are in crisis, contact your outpatient providers for direction. If unable to reach your providers, please call the CAN HELP LINE AT or go to the closest Emergency Room. 5. Avoid alcohol and un-prescribed drugs. 6. You have been provided with the Mental Health Advance Directives Pamphlet for your review. AFTERCARE APPOINTMENTS: * Please call your insurance company prior to your scheduled appointment to confirm your aftercare providers are covered. Take your insurance information to your a ppointments. WHO TO CALL AND WHEN: Medical Emergencies: For questions or emergencies related to your hospital stay, please contact the Inpatient Behavioral Health Unit at [phone]. A psychology clinician is on-call 15/01 for the Behavioral Health Unit for emergencies At any time you feel your situation is an emergency, you may also call 911 immediately. Your Doctors Instructions noted above were prepared by provider Ynes Hensley MD. Pending Studies at Discharge: No Stand-Alone Forms: [facility] Medications and DC Order Prescriptions: Continued albuterol sulfate [Ventolin HFA] 90 mcg/actuation HFA aerosol inhaler inhalation UD PRN (Reason: Shortness Of Breath Or Wheezing) RF: 0 Discharge Orders: Discharge Order (Routine); Ordered 04/10/19 Ordered By: Ynes Hensley Admission Data Admit Date/Time: 04/07/19 17:15 Attending Provider: Ynes Hensley Admit Provider: Ynes Hensley Primary Care Provider: Igor Jose Other Interventions: PSY Interdisciplinary Discharge Planning Last Done: 04/10/19 09:13 Coding Level of Care Code 31642 D/C day mgmt > 30 min Diagnoses Suicidal ideation R45.851 Depression F32.2 Active/Remission status: currently active Depression Type: major depressive disorder Major depression episode severity: severe Major depression recurrence: single episode Psychotic features: without psychotic features Gluten intolerance K90.41
== END 2019-04-10 09:48 | disposition home or self-care (01) | DRG 885 ==
LOC: ED 12:40 → 3S 17:15